=== PATIENT | male | born 1945 | race Caucasian/White ===

== ENCOUNTER → 2017-02-18 | Outpatient (CLI) | payer OTHER ==
[~2017-02-18] VITALS: Ht 167.6 cm; Wt 62.0 kg
[~2017-02-18] MED LIST: ASPI81TA28 PO; BENZOCAIN/TETRACA/BUTAM SPRAY 200 APPLN/20 GM SPRY ONE; CANNULA ONE; FENTANYL CITRATE INJ 50 MCG/1 ML 2 ML VIAL ONE; FINA5TAB PO; GLYCOPYRROLATE INJ 0.2 MG/ML VIAL ONE; MIDAZOLAM HCL 1 MG/ML 2ML VIAL ONE; URX/10 PO
[2017-02-18 07:28] VITALS: BP 158/75; PULSE 78; TEMP 36.7; O2SAT 99; Ht 167.6 cm; Wt 62.0 kg
[2017-02-18 08:30] VITALS: BP 204/108; PULSE 110; O2SAT 100
[2017-02-18 08:35] VITALS: BP 178/94; PULSE 116; O2SAT 99
[2017-02-18 08:40] VITALS: BP 170/97; PULSE 124; O2SAT 99
[2017-02-18 08:45] VITALS: BP 194/103; PULSE 126; O2SAT 99
--- NOTE | 2017-02-18 08:45 | History & Physical Bridge Note ---
H&P Re-Evaluation Bridge Note: I have examined the patient, reviewed the History & Physical and in the interval since the performance of the History & Physical I have noted the following changes of clinical significance: No changes noted
--- NOTE | 2017-02-18 08:46 | Procedure Note ---
Pre-Mod Sedation Assessment General Date of Moderate Sedation: Feb 18, 2017. Vital Signs: Vital Signs Past 12 Hours Date Time Temp Pulse Resp B/P (MAP) Pulse Ox O2 Delivery O2 Flow Rate FiO2 02/18/17 07:28 36.7 78 12 158/75 99 Room Air Review Cardiovascular: regular rate, rhythm, no edema, no gallop, no JVD, no murmur, normal peripheral pulses Abdomen: normal bowel sounds, non tender, soft, no organomegaly, no pulsatile mass Lungs: chest non-tender, lungs clear, normal breath sounds, no respiratory distress, no accessory muscle use Airway Class: II Pre-Sedation Airway Assessment Oral Cavity: Dentures Short Thick Neck: No Hx of Sleep Apnea: No Smoking Status: Never Smoker Notes The planned sedation has been discussed with the patient and consent obtained. I have identified the patient, determined the appropriateness of sedation and have assessed the patient immediately prior to the procedure. All medicine(s) and interventions are by my order.
--- NOTE | 2017-02-18 08:46 | Procedure Note ---
Post-Mod Sedation Assessment General Date of Moderate Sedation Feb 18, 2017. Vital Signs: Vital Signs Past 12 Hours Date Time Temp Pulse Resp B/P (MAP) Pulse Ox O2 Delivery O2 Flow Rate FiO2 02/18/17 07:28 36.7 78 12 158/75 99 Room Air Review - Discharge Criteria Vital Signs Stable: Yes Alert/Oriented/Conversant: Yes Returned to Baseline Mental St: Yes Nausea Absent/Minimal: Yes Pain/Discomfort/Absent/Minimal: Yes Normal/Baseline Respirations: Yes Active Bleeding?: No Pt Received D/C Instructions: Yes Prescriptions Given: None
--- NOTE | 2017-02-18 08:49 | [facility] Post Operative Brief Note ---
Immediate Operative Summary Operative Date Feb 18, 2017. Pre-Operative Diagnosis Mitral valve lesion aortic stenosis Post-Operative Diagnosis redundant chordae aortic stenosis Procedure(s) Performed FAUSTO Surgeon Fred Flooring Machine Operator Surgeon(s) Stefany MARTINEZ Estimated Blood Loss none Findings no lesion present on mitral valve mild to moderate aortic stenosis Specimens none start time:829 stop time:845 Anesthesia conscious sedation with a total of Versed 4mg and Fentanyl 75 mcg Complication(s) None Disposition cpl
--- NOTE | 2017-02-18 08:53 | Procedure Note ---
Procedure Note Date of Service Feb 18, 2017. Procedure Note Informed consent obtained patient prepped received robinol 0.4mg FAUSTO performed without complication no lesion present on mitral valve, transthoracic study likely represented redundant chordae tendinae aortic stenosis with only mildly reduced systolic excursion Pt was adequately sedated but with sinus tach into 130's hypertensive into 210's systolic but remained clinically stable Plan: will follow aortic stenosis as outpatient for outpatient stress on 02/19/17 no new meds started today post sedation precautions reviewed
--- NOTE | 2017-02-18 08:57 | Discharge Instructions ---
Discharge Instructions Procedure Procedure Date: Feb 18, 2017. Reason for Visit: Aortic Stenosis *Fred To Do. Discharge Discharge Date: Feb 18, 2017. Discharge Diagnosis: Aortic stenosis Last Recorded Wt (Kilograms): 62 Anesthesia Post Anesthesia Instructions: If you have had General Anesthesia or IV Sedation: * Do not drive today. * Resume driving when surgeon permits. * Do not make important decisions or sign legal documents today. * Call surgeon for: 1. Temperature elevations greater than 101 degrees F. 2. Uncontrollable pain. 3. Excessive bleeding. 4. Persistent nausea and vomiting. 5. Medication intolerance (nausea, vomiting or rash). * For nausea and vomiting use only clear liquids such as: tea, soda, bouillon until nausea subsides, then gradually increase diet as tolerated. * If you have any concerns or questions, call your surgeon's office. If physician is unavailable and it is an emergency, call 911 or go to the nearest emergency room. Instructions Activity Recommendations: limitations as noted below Return to School/Work: with the following limitations Recommended Home Diet: special diet (no hot liquids or "scratchy foods" for 24 hours) Allergies: Coded Allergies: Cephalosporins (Unverified Allergy, Intermediate, RASH, 02/18/17) PER [facility] CHART Sulfa Antibiotics (Unverified Allergy, Intermediate, RASH, 02/18/17) as per patient as a child Terfenadine (Unverified Allergy, Intermediate, RASH, 02/18/17) PER [facility] CHART Tetracyclines & Related (Unverified Allergy, Intermediate, RASH, 02/18/17) PER [facility] CHART Follow Up Follow-up with: outpatient stress on 02/19/17 Liberty Dumont Recommendations: Call your doctor if: * Temperature above 101 degrees * Pain not relieved by pain medicine ordered * There is increased drainage or redness from any incision * You have any unanswered questions or concerns. Your Doctors Instructions noted above were prepared by provider Wilman Ibarra. Patient Signature Section: Patient Instructions Signature Page Teddy Rincon Patient (or Guardian) Signature/Date: I have read and understand the instructions given to me by my caregivers. Caregiver/RN/Doctor Signature/Date: The above-named patient and/or guardian has received patient instructions on this date. + Original Patient Signature Page (only) stays with chart. Please make copy for patient.
--- NOTE | 2017-02-18 09:25 | TEE ---
*NOTICE TO RECEIVING LIBERTARIAN AGENCY This information is strictly Confidential and protected under [place] law. [place] law prohibits you from making any further disclosure of this information unless further disclosure is expressly permitted by the written consent of the person to whom it pertains or is authorized by law. A general authorization for the release of medical or other information is not sufficient for this purpose. Hospital accepts no responsibility if the information is made available to any other person, INCLUDING THE PATIENT. Interpretation Summary * Name: BRAULIO DEAN Study Date: 02/18/2017 07:25 AM BP: 178/94 mmHg * HR: 123 * : 1945 (M/d/yyyy) Gender: Male Height: 66 in * Age: 71 yrs Ethnicity: [place] Weight: 135 lb * Ordering Physician: Wilman Ibarra DO * Performed By: Xuan Canchola RCS * * Reason For Study: Aortic Stenosis * BSA: 1.7 m2 * -- Conclusions -- * Robinul 0.4 mg administered for to reduce oral secretions. * Mildly calcified trileaflet aortic valve with mildly reduced systolic excursion. Mild to moderate aortic stenosis. * Slight redundance of chordae, otherwise, structurally normal mitral valve. Procedure Details * FAUSTO Probe #2 utilized for procedure. * The study was performed in Cardiac Catheterization Lab. * Time out was conducted by the physician, nurse, and cytopathology technologist with positive identification of patient and procedure. * Informed consent for Transesophageal Echocardiogram was obtained prior to the procedure. * An intravenous line was placed. A topical anesthetic agent was used for oropharangeal anesthesia. A bite block was inserted. * The patient's vital signs, including blood pressure, heart rate, pulse oximetry and cardiac rhythm were monitored throughout the procedure . * Fentanyl 75 mcg was administered for procedural sedation. * Midazolam 4 mg administered for sedation. * Robinul 0.4 mg administered for to reduce oral secretions. * A multifrequency, multiplane transesopheageal echocardiographic endoscope was inserted and manipulated in the standard fashion to achieve multiplane views. * The transesophageal probe was passed without difficulty. * The usual views were obtained; basal, mid-esophageal, transgastric and aortic views. * Limited views in some windows were obtained due to increased patient vital signs. Procedure start time 0830. Procedure Stop time 0846. * A 2D transesophageal echocardiogram was performed. * A 2D transesophageal echocardiogram with color flow Doppler was performed. * A 2D transesophageal echocardiogram with Doppler and color flow Doppler was performed. Left Ventricle * The left ventricle is normal in size. * Left ventricular systolic function is normal. * The left ventricular wall motion is normal. Atria * The left atrial size is normal. * Right atrial size is normal. * No ASD detected; PFO is not assessed. Mitral Valve * Slight redundance of chordae, otherwise, structurally normal mitral valve. Tricuspid Valve * The tricuspid valve is not well visualized. * There is no tricuspid stenosis. * No tricuspid regurgitation. Aortic Valve * The aortic valve is trileaflet. * Mildly calcified trileaflet aortic valve with mildly reduced systolic excursion. Mild to moderate aortic stenosis. Great Vessels * The aortic root and proximal ascending aorta are normal sized. Pericardium * There is no pericardial effusion.
[2017-02-18 09:26] VITALS: BP 126/73; PULSE 89; O2SAT 94
== END | disposition home or self-care (01) ==
LOC: C.CPL 06:55 → EDBD 07:30
PROVIDERS: ATTEND Internal Medicine Cardiovascular Disease
DX: I35.0 Nonrheumatic aortic (valve) stenosis (principal)